=== PATIENT | male | born 1950 | race African-American/Black ===

== ENCOUNTER 2025-03-01 20:09 | Emergency (ER) | payer SELFPAY ==
[~2025-03-01] VITALS: Ht 175.3 cm; Wt 71.0 kg
[2025-03-01 20:26] VITALS: O2SAT 98
[2025-03-01] MEDS: ACETAMINOPHEN 500MG TABLET PO ONE (23:03)
[2025-03-02] MEDS ORDERED: NAPR-1176 MT (00:21)
[2025-03-02] MEDS ORDERED: LIDO-53 TP (00:21)
[2025-03-02 00:41] VITALS: BP 166/101; PULSE 70; RESP 18; TEMP 36.7; O2SAT 97
== END 2025-03-02 00:43 | disposition home or self-care (01) ==
LOC: ER 20:09
DX: M54.2 Cervicalgia (principal); M54.9 Dorsalgia, unspecified; Z86.73 Personal history of transient ischemic attack (TIA), and cerebral infarction without residual deficits; Z98.890 Other specified postprocedural states
CPT/HCPCS: 71045; 99283; Z7610 ×2